=== PATIENT | male | born 1970 | race Caucasian/White ===

== ENCOUNTER → 2023-06-25 09:33 | Outpatient (CLI) | payer OTHER, MEDICAID, SELFPAY ==
[2023-06-25 19:59] LABS: Add Manual Diff / Slide Review NO; Basophils Absolute Auto 0 /uL (0-100); Basophils Percent Auto 0.2 % (0-2); Eosinophils Absolute Auto 200 /uL (0-450); Eosinophils Percent Auto 2.9 % (2-4); Hematocrit 47.6 % (41-53); Hemoglobin 16.5 g/dL (13.5-17.5); Lymphocytes Absolute Auto 1200 /uL (1100-4500); Lymphocytes Percent Auto 22.4 % (25-40); Mean Corpuscular HGB Conc 34.7 % (30-36); Mean Corpuscular Volume 95.1 fL (80-100); Monocytes Absolute Auto 500 /uL (0-900); Monocytes Percent Auto 8.9 % (3-14); Neutrophils Absolute Auto 3600 /uL (1500-7000); Neutrophils Percent Auto 65.6 % (50-75); Platelet Count 181 X10^3/uL (150-400); Red Cell Distribution Width 12.7 % (11.6-14.8); White Blood Cell Count 5.5 X10^3/uL (4.5-11.0)
[2023-06-25 20:20] LABS: Alanine Aminotransferase 42 IU/L (<50); Albumin 4.4 g/dL (3.5-5.0); Albumin Globulin Ratio 1.5 (1.0-2.8); Alkaline Phosphatase 92 U/L (38-126); Aspartate Aminotransferase 38 IU/L (17-59); BUN Creatinine Ratio 9.9 (6-22); Blood Urea Nitrogen 9 mg/dL (9-20); Calcium 9.8 mg/dL (8.4-10.2); Carbon Dioxide 29 mmol/L (22-32); Chloride 95 mmol/L (98-107); Cholesterol 312 mg/dL (140-199); Estimated Glomerular Filt Rate > 60 mL/min (>60); Globulin 2.9 g/dL (1.7-4.1); Glucose 284 mg/dL (70-100); HDL Cholesterol 67 mg/dL (40-60); HEMOLYSIS < 15 (0-50); Sodium 132 mmol/L (137-145); Total Protein 7.3 g/dL (6.3-8.2); Triglycerides 418 mg/dL (35-150)
[2023-06-25 21:00] LABS: Microalbumi Creatinin Ratio Ur 12.3 ug/mg CR (<30); Microalbumin Urine Random 2.3 mg/dL (0-1.6)
[2023-07-08 09:36] LABS: Percent Free Testosterone 2.76 % (1.50-4.20); Testosterone Free 22.14 ng/dL (5.00-21.00); Testosterone Total 802.3 ng/dL (264.0-916.0)
== END ==
PROVIDERS: PCP Physician Assistant; Visit Provider Physician Assistant
DX: E11.9 Type 2 diabetes mellitus without complications (principal); Z51.81 Encounter for therapeutic drug level monitoring; Z79.890 Hormone replacement therapy; Z13.5 Encounter for screening for eye and ear disorders
CPT/HCPCS: 80053; 80061; 82043; 82570; 83036; 84402; 84403; 85025

== ENCOUNTER → 2023-09-30 10:23 | Outpatient (CLI) | payer OTHER, MEDICAID, SELFPAY ==
[2023-09-30 19:11] LABS: Add Manual Diff / Slide Review NO; Basophils Absolute Auto 0 /uL (0-100); Basophils Percent Auto 0.2 % (0-2); Eosinophils Absolute Auto 100 /uL (0-450); Eosinophils Percent Auto 2.5 % (2-4); Hematocrit 45.6 % (41-53); Hemoglobin 15.6 g/dL (13.5-17.5); Lymphocytes Absolute Auto 900 /uL (1100-4500); Lymphocytes Percent Auto 18.6 % (25-40); Mean Corpuscular HGB Conc 34.3 % (30-36); Mean Corpuscular Volume 96.2 fL (80-100); Monocytes Absolute Auto 400 /uL (0-900); Monocytes Percent Auto 8.4 % (3-14); Neutrophils Absolute Auto 3600 /uL (1500-7000); Neutrophils Percent Auto 70.3 % (50-75); Platelet Count 166 X10^3/uL (150-400); Red Blood Cell Count 4.74 X10^6/uL (4.5-5.9); Red Cell Distribution Width 12.5 % (11.6-14.8); White Blood Cell Count 5.1 X10^3/uL (4.5-11.0)
[2023-09-30 19:12] LABS: Alanine Aminotransferase 37 IU/L (<50); Albumin 4.1 g/dL (3.5-5.0); Albumin Globulin Ratio 1.6 (1.0-2.8); Alkaline Phosphatase 71 U/L (38-126); Aspartate Aminotransferase 39 IU/L (17-59); BUN Creatinine Ratio 12.8 (6-22); Bilirubin Total 0.7 mg/dL (0.2-1.3); Blood Urea Nitrogen 11 mg/dL (9-20); Calcium 9.3 mg/dL (8.4-10.2); Carbon Dioxide 29 mmol/L (22-32); Chloride 104 mmol/L (98-107); Cholesterol 162 mg/dL (140-199); Estimated Glomerular Filt Rate > 60 mL/min (>60); Globulin 2.6 g/dL (1.7-4.1); Glucose 200 mg/dL (70-100); HDL Cholesterol 47 mg/dL (40-60); HEMOLYSIS < 15 (0-50); LDL Cholesterol Calculated 48 mg/dL (<100); Potassium 4.8 mmol/L (3.4-5.1); Sodium 137 mmol/L (137-145); Total Protein 6.7 g/dL (6.3-8.2); Triglycerides 337 mg/dL (35-150)
[2023-09-30 19:26] LABS: Creatinine Urine Random 223.4 mg/dL
[2023-09-30 19:30] LABS: Microalbumi Creatinin Ratio Ur 23.2 ug/mg CR (<30); Microalbumin Urine Random 5.2 mg/dL (0-1.6)
[2023-09-30 19:52] LABS: Hemoglobin A1C% w Est Avg Glu 9.2 % (4.0-6.0)
== END ==
PROVIDERS: PCP Physician Assistant; Visit Provider Physician Assistant
DX: E11.9 Type 2 diabetes mellitus without complications (principal)
CPT/HCPCS: 80053; 80061; 82043; 82570; 83036; 85025

== ENCOUNTER → 2023-12-25 09:11 | Outpatient (CLI) | payer OTHER, MEDICAID, SELFPAY ==
[2023-12-25 19:15] LABS: Alanine Aminotransferase 38 IU/L (<50); Albumin 4.3 g/dL (3.5-5.0); Albumin Globulin Ratio 1.8 (1.0-2.8); Alkaline Phosphatase 76 U/L (38-126); Aspartate Aminotransferase 37 IU/L (17-59); Bilirubin Total 0.7 mg/dL (0.2-1.3); Blood Urea Nitrogen 19 mg/dL (9-20); Calcium 9.3 mg/dL (8.4-10.2); Carbon Dioxide 27 mmol/L (22-32); Chloride 103 mmol/L (98-107); Cholesterol 164 mg/dL (140-199); Estimated Glomerular Filt Rate > 60 mL/min (>60); Globulin 2.4 g/dL (1.7-4.1); Glucose 218 mg/dL (70-100); HDL Cholesterol 71 mg/dL (40-60); HEMOLYSIS < 15 (0-50); LDL Cholesterol Calculated 55 mg/dL (<100); Potassium 4.7 mmol/L (3.4-5.1); Sodium 136 mmol/L (137-145); Total Protein 6.7 g/dL (6.3-8.2); Triglycerides 188 mg/dL (35-150)
[2023-12-25 19:30] LABS: Hemoglobin A1C% w Est Avg Glu 9.2 % (4.0-6.0)
[2023-12-25 20:34] LABS: Microalbumin Urine Random 4.8 mg/dL (0-1.6)
[2024-01-01 00:14] LABS: Percent Free Testosterone 3.97 % (1.50-4.20); Testosterone Free 9.85 ng/dL (5.00-21.00); Testosterone Total 248.1 ng/dL (264.0-916.0)
== END ==
PROVIDERS: PCP Physician Assistant; Visit Provider Physician Assistant
DX: Z51.81 Encounter for therapeutic drug level monitoring (principal); F64.0 Transsexualism; E11.65 Type 2 diabetes mellitus with hyperglycemia; E11.9 Type 2 diabetes mellitus without complications; E78.5 Hyperlipidemia, unspecified; R03.0 Elevated blood-pressure reading, without diagnosis of hypertension; Z79.899 Other long term (current) drug therapy; Z87.890 Personal history of sex reassignment; Z79.890 Hormone replacement therapy
CPT/HCPCS: 80053; 80061; 82043; 82570; 83036; 84402; 84403

== ENCOUNTER → 2024-10-22 10:33 | Outpatient (CLI) | payer SELFPAY ==
[2024-10-22 19:01] LABS: Hemoglobin A1C% w Est Avg Glu 8.1 % (4.0-6.0)
[2024-10-22 19:06] LABS: Alanine Aminotransferase 62 IU/L (<50); Albumin Globulin Ratio 2.1 (1.0-2.8); Alkaline Phosphatase 72 U/L (38-126); Aspartate Aminotransferase 73 IU/L (17-59); BUN Creatinine Ratio 12.4 (6-22); Bilirubin Total 0.9 mg/dL (0.2-1.3); Blood Urea Nitrogen 11 mg/dL (9-20); Calcium 9.7 mg/dL (8.4-10.2); Carbon Dioxide 25 mmol/L (22-32); Chloride 99 mmol/L (98-107); Cholesterol 189 mg/dL (140-199); Estimated Glomerular Filt Rate > 60 mL/min (>60); Globulin 2.4 g/dL (1.7-4.1); Glucose 201 mg/dL (70-100); HDL Cholesterol 77 mg/dL (40-60); HEMOLYSIS < 15 (0-50); LDL Cholesterol Calculated 77 mg/dL (<100); Potassium 4.7 mmol/L (3.4-5.1); Sodium 136 mmol/L (137-145); Total Protein 7.4 g/dL (6.3-8.2); Triglycerides 175 mg/dL (35-150)
[2024-10-22 19:14] LABS: Creatinine Urine Random 152.43 mg/dL
[2024-10-22 19:20] LABS: Microalbumin Urine Random 4.8 mg/dL (0-1.6)
[2024-10-22 19:29] LABS: Prostate Specific Antigen Scrn < 0.064 ng/mL (0.1-4.0)
== END ==
PROVIDERS: PCP Physician Assistant; Visit Provider Physician Assistant
DX: E11.9 Type 2 diabetes mellitus without complications (principal); Z79.899 Other long term (current) drug therapy; Z51.81 Encounter for therapeutic drug level monitoring; Z79.890 Hormone replacement therapy; E78.1 Pure hyperglyceridemia; R03.0 Elevated blood-pressure reading, without diagnosis of hypertension; Z12.5 Encounter for screening for malignant neoplasm of prostate
CPT/HCPCS: 80053; 80061; 82043; 82570; 83036; 84402; 84403; G0103